=== PATIENT | male | born 1990 ===

== ENCOUNTER 2018-05-27 10:56 | Emergency (ER) | payer OTHER ==
[2018-05-27 11:11] VITALS: BP 143/80; PULSE 70; RESP 20; TEMP 97.3; O2SAT 98
[2018-05-27 11:12] VITALS: BMI 40.6
--- NOTE | 2018-05-27 12:09 | ED PDOC ---
HPI: General Adult Time Seen by Provider: 05/27/18 11:11 Chief Complaint (Nursing): ENT Problem History Per: Patient Additional Complaint(s): Pt. states for the past 3 days she's had L earache. Used OTC eardrops without relief. Denies recent swimming, fever, headache, sore throat, hearing changes. Past Medical History Reviewed: Historical Data, Nursing Documentation, Vital Signs Vital Signs: Last Vital Signs Temp 97.3 F L 05/27/18 11:10 Pulse 70 05/27/18 11:10 Resp 20 05/27/18 11:10 BP 143/80 05/27/18 11:10 Pulse Ox 98 05/27/18 12:09 - Medical History PMH: No Chronic Diseases - Family History Family History: States: No Known Family Hx - Home Medications Home Medications: Ambulatory Orders Medication Instructions Recorded Neomycin/Polymyxin/Hydrocortis 3 drop TID #1 bottle 05/27/18 [Cortisporin Otic Susp] - Allergies Allergies/Adverse Reactions: Allergies Allergy/AdvReac Type Severity Reaction Status Date / Time No Known Allergies Allergy Verified 05/27/18 11:19 Review of Systems ROS Statement: Except As Marked, All Systems Reviewed And Found Negative ENT: Positive for: Ear Pain Physical Exam - Physical Exam Appears: Positive for: Well, Non-toxic, No Acute Distress Skin: Positive for: Normal Color, Warm. Negative for: Rash Eye Exam: Positive for: Normal appearance, EOMI, PERRL ENT: Positive for: TM Is/Are (intact, non-erythematous, non-bulging b/l), Other (L ear canal with erythema, exudate, and minimal edema; no mastoid tenderness b/ l). Negative for: Nasal Congestion, Pharyngeal Erythema, Tonsillar Exudate, Tonsillar Swelling Cardiovascular/Chest: Positive for: Regular Rate, Rhythm Respiratory: Positive for: Normal Breath Sounds. Negative for: Respiratory Distress Neurologic/Psych: Positive for: Alert, Oriented (x3) - ECG O2 Sat by Pulse Oximetry: 98 Disposition - Clinical Impression Clinical Impression: Otitis externa - Patient ED Disposition Is Patient to be Admitted: No - Disposition Referrals: [facility] [Outside] Disposition: Routine/Home Disposition Time: 12:07 Condition: STABLE Additional Instructions: RACHEAL CORLEY, thank you for letting us take care of you today. Your provider was Kaycee Mancini MD and you were treated for EARACHE. The emergency medical care you received today was directed at your acute symptoms. If you were prescribed any medication, please fill it and take as directed. It may take several days for your symptoms to resolve. Return to the Emergency Department if your symptoms worsen, do not improve, or if you have any other problems. Please contact your doctor or call one of the physicians/clinics you have been referred to that are listed on the Patient Visit Information form that is included in your discharge packet. Bring any paperwork you were given at discharge with you along with any medications you are taking to your follow up visit. Our treatment cannot replace ongoing medical care by a primary care provider outside of the emergency department. Thank you for allowing the [facility] team to be part of your care today. If you had an X-Ray or CT scan: A Radiologist will review the ED reading if any change in treatment is needed we will contact you. If you had a blood, urine, or wound culture: It will take several days for the results, if any change in treatment is needed we will contact you. If you had an STI test: It will take 48 hours for the results. Please call after 1 week if you have not heard back. Prescriptions: Neomycin/Polymyxin/Hydrocortis [Cortisporin Otic Susp] 3 drop TID #1 bottle Instructions: Outer Ear Infection (DC) Forms: [employer] (Yoruba) Print Language: TELUGU
== END 2018-05-27 12:17 | disposition home or self-care (01) ==
LOC: H.ER 10:56
DX: H60.92 Unspecified otitis externa, left ear (principal)